=== PATIENT | male | born 1990 | race Caucasian/White ===

== ENCOUNTER 2018-07-13 21:36 | Emergency (ER) | payer OTHER ==
[~2018-07-13] VITALS: Ht 182.9 cm; Wt 86.4 kg
[2018-07-13 21:46] VITALS: TEMP 98.9
[2018-07-13] MEDS ORDERED: PEPCID 20MG TAB20 MG PO (23:43)
[2018-07-13] MEDS ORDERED: BENADRYL25 M2 PO (23:43)
[2018-07-13 23:55] VITALS: BP 132/83; PULSE 86
== END 2018-07-14 00:06 | disposition home or self-care (01) ==
LOC: COL.ER 21:36
DX: T78.1XXA Other adverse food reactions, not elsewhere classified, initial encounter (principal); R07.89 Other chest pain
CPT/HCPCS: J1200; J1885; J2930; J7030